=== PATIENT | female | born 2000 | race Caucasian/White ===

== ENCOUNTER 2023-06-16 05:33 | Inpatient (IN) | payer OTHER ==
[2023-06-15 11:48] LABS: Hematocrit 34.5 % (34.9-44.5); Hemoglobin 11.5 g/dL (12.0-15.5); Platelet Count 330 10x3/uL (150-450)
[2023-06-15 12:50] LABS: Syphilis Antibody Nonreactive (Nonreactive); Syphilis Antibody Index 0.02 S/CO (<1.00 Non-Reactive)
[2023-06-15 12:51] LABS: HBSAg Index 0.22 S/CO (0-0.99); Hep B Surf Ag Non-Reactive S/CO (NonReactive)
[2023-06-16] MEDS ORDERED: Famotidine/PF 20 mg/2ml Vial SLOW IVP PRN (05:56)
[2023-06-16] MEDS ORDERED: Oxytocin 30 units/NS 500 ML 500 ML IV SCH (05:56)
[2023-06-16] MEDS ORDERED: Methylergonovine 0.2 MG/ML VIAL IM PRN (05:56)
[2023-06-16] MEDS ORDERED: Carboprost 250 MCG/ML AMP IM PRN (05:56)
[2023-06-16] MEDS ORDERED: CEFAZOLIN 2 GM in Sodium Chloride 0.9% 100 ML IVPB SCH (05:56)
[2023-06-16] MEDS ORDERED: Bicitra 30 ML UDCUP PO PRN (05:56)
[2023-06-16] MEDS ORDERED: Diphenoxylate HCl/Atropine Tablet PO PRN (05:56)
[2023-06-16] MEDS ORDERED: Misoprostol 200 MCG TAB PR PRN (05:56)
[2023-06-16] MEDS ORDERED: Promethazine HCl 25 MG/ML VIAL IM PRN ×2 (05:56→07:08)
[2023-06-16] MEDS ORDERED: Tranexamic Acid 1,000 MG/10 ML VIAL IVP PRN (05:56)
[2023-06-16] MEDS ORDERED: hydrALAZINE 20 MG/ML VIAL SLOW IVP PRN (05:56)
[2023-06-16 05:59] VITALS: BMI 30.2
[2023-06-16] MEDS ORDERED: Moisturizing Cream (Eucerin) 113 GM JAR TOP PRN (07:08)
[2023-06-16] MEDS ORDERED: Promethazine HCl 25 MG SUPP PR PRN (07:08)
[2023-06-16] MEDS ORDERED: Ondansetron PF 4 MG/2 ML Vial IVP PRN (07:08)
[2023-06-16] MEDS ORDERED: diphenhydrAMINE 50 MG/ML VIAL IVP PRN (07:08)
[2023-06-16] MEDS ORDERED: Naloxone HCl 0.4 mg/ml Vial IV PRN (07:08)
[2023-06-16] MEDS ORDERED: fentaNYL 50 mcg/mL 1 mL Vial SLOW IVP PRN (07:08)
[2023-06-16] MEDS ORDERED: Naloxone HCl 0.4 mg/ml Vial IVP PRN ×2 (07:08)
[2023-06-16] MEDS ORDERED: Meperidine HCl/PF 25 MG (1 mL) VIAL SLOW IVP PRN (07:08)
[2023-06-16] MEDS ORDERED: Communication Order-Pharmacy FS SCH (07:15)
[2023-06-16] MEDS: Ketorolac Tromethamine 30 MG (1 mL) VIAL IVP SCH (09:34)
[2023-06-16] MEDS: Ondansetron PF 4 MG/2 ML Vial IVP PRN ×2 (09:43→22:25)
[2023-06-16] MEDS: Erythromycin Base 0.5% Oint 1 GM TUBE ONE (12:06)
[2023-06-16] MEDS: Lactated Ringer's 1,000 ML IV SCH (12:06)
[2023-06-16] MEDS: PHENYLEPHRINE-NS 100 MCG/ML 10 ML SYRINGE ONE ×2 (12:07→12:08)
[2023-06-16] MEDS: Dexamethasone 4 mg/ml Vial ONE (12:07)
[2023-06-16] MEDS: Phytonadione Neonatal 1 MG/0.5 ML AMP ONE (12:07)
[2023-06-16] MEDS: Morphine PF 10 MG/10 ML VIAL ONE (12:07)
[2023-06-16] MEDS: Oxytocin 10 UNITS/ML VIAL ONE (12:07)
[2023-06-16] MEDS: Hepatitis B Vaccine 10 MCG/0.5 ML SYR ONE (12:07)
[2023-06-16] MEDS: fentaNYL 50 mcg/mL 1 mL Vial ONE ×2 (12:08)
[2023-06-16] MEDS: Ondansetron PF 4 MG/2 ML Vial ONE (12:08)
[2023-06-16] MEDS: Ketorolac Tromethamine 30 MG (1 mL) VIAL IVP PRN (16:18)
[2023-06-17] MEDS ORDERED: Bisacodyl 10 MG SUPP PR PRN (06:28)
[2023-06-17] MEDS ORDERED: Lanolin Ointment 7 GM TUBE TOP PRN (06:28)
[2023-06-17] MEDS ORDERED: Acetaminophen 325 MG TAB PO PRN (06:28)
[2023-06-17] MEDS ORDERED: diphenhydrAMINE 25 MG CAP PO PRN (06:28)
[2023-06-17] MEDS ORDERED: Simethicone Chewable 80 MG TAB PO PRN (06:28)
[2023-06-17] MEDS ORDERED: hydrALAZINE 20 MG/ML VIAL SLOW IVP PRN (06:28)
[2023-06-17] MEDS: HYDROcodone/Acetaminophen 5/325 mg Tablet PO PRN ×2 (06:39→18:15)
[2023-06-17 07:26] LABS: Hematocrit 27.1 % (34.9-44.5); Mean Corpuscular HGB CONC 33.2 g/dL (32.0-36.0); Mean Corpuscular Volume 90.3 fl (81.6-98.3); Mean Platelet Volume 10.6 fl (7.4-10.4); Platelet Count 269 10x3/uL (150-450); RBC Distribution Width 13.7 % (11.5-14.5); White Blood Cell (WBC) Count 13.8 10x3/uL (3.5-10.5)
[2023-06-17] MEDS: Measles/Mumps/Rubella 10 MCG/0.5 ML VIAL SC ONE (07:39)
[2023-06-17] MEDS: Boostrix 0.5 ML (Tdap) VIAL (>/=7 yrs of age) IM ONE (07:39)
[2023-06-17] MEDS: Ferrous Sulfate 325 MG TAB PO SCH (08:34)
[2023-06-17] MEDS: Docusate 100 MG CAP PO SCH (08:34)
[2023-06-17] MEDS: Ibuprofen 800 MG TAB PO SCH (13:28)
[2023-06-18 08:05] VITALS: BP 99/63; TEMP 98.3
== END 2023-06-18 11:50 | disposition home or self-care (01) | DRG 788 ==
LOC: CSHLD 05:33 → CSHPP 11:55
PROVIDERS: ADMIT Family Medicine; ATTEND Family Medicine
PROC: 10D00Z1 Extraction of Products of Conception, Low, Open Approach (ICD-10-PCS; principal; 2023-06-16)
DX: O99.02 Anemia complicating childbirth (principal); D64.9 Anemia, unspecified; Z3A.39 39 weeks gestation of pregnancy; Z37.0 Single live birth
CPT/HCPCS: 51702; 85014; 85018; 85027; 85049; 86780; 86850; 86900; 86901; 87340; J1100; J1885; J2274; J2405; J2590; J3010